=== PATIENT | male | born 1935 | race Two or more races ===

== ENCOUNTER 2018-04-16 10:48 | Emergency (ER) | payer OTHER ==
[~2018-04-16] VITALS: Ht 172.7 cm; Wt 77.1 kg
[~2018-04-16 10:48] MED LIST: AMLODIPINE BESYL5 MG PO; BACTRIM DS TAB1 EACH PO; CLONAZEPAM0.5 MG; ISOSORBIDE MONO30 MG PO; LAMICTAL25 MG; LATUDA20 MG; PAXIL30 MG; REQUIP XL2 MG; RESTORIL30 M1; SIMVASTATIN20 MG PO; SINEMET CR 51 TAB.SA; TAMS0.4C PO; ZOCOR20 MG
[2018-04-16] MEDS ORDERED: GLIMEPIRIDE2 MG PO (11:06)
[2018-04-16] MEDS ORDERED: COZAAR25 MG PO (11:07)
== END 2018-04-16 15:57 | disposition home or self-care (01) ==
LOC: ER 10:48
DX: R60.0 Localized edema (principal); I87.2 Venous insufficiency (chronic) (peripheral)